=== PATIENT | male | born 1980 | race Caucasian/White ===

== ENCOUNTER 2021-09-20 09:30 | Emergency (ER) | payer OTHER ==
--- NOTE | 2021-09-20 10:42 | Ultrasound Report ---
PROCEDURE: Duplex Ext Veins Right INDICATIONS: Right leg pain; history of DVT; positive recent travel history. TECHNIQUE: Real-time imaging, as well as color and pulse Doppler interrogation, were performed of the lower extr emity deep veins from the inguinal ligament to the popliteal fossa. COMPARISON: None. FINDINGS: The deep veins are normally compressible, and free of intraluminal thrombus. Color and pu lse Doppler demonstrate normal phasic intraluminal flow. There is normal augmentation response to di stal compression maneuver. IMPRESSION: No sonographic evidence of DVT in the right lower extremity. Reviewed by: Sánchez Davies MD on 09/20/2021 10:41 AM PDT Approved by: Sánchez Davies MD on 09/20/2021 10:41 AM PDT Station ID: [id number]
--- NOTE | 2021-09-20 11:36 | ED Physician Documentation ---
History of Present Illness - Stated complaint Stated Complaint: LEG PAIN - Chief complaint Chief Complaint: Ext Problem - Additonal information Additional information: 40-year-old male presents emergency department for evaluation of right leg pain for about the last week. This follows travel via car from [place]. 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 Currently taking Coumadin. Denies missing any doses. No chest pain or shortness of air. He states that 1 day travel was extremely stressful and he drove for a much longer period of time without stopping than he anticipated. He does have some pain from his low back that radiates down the right leg. No saddle anesthesia. No bowel or bladder incontinence. No falls or trauma. He does have a history of low back pain but with his history of thromboembolism he wanted to rule out DVT today. Review of Systems Constitutional: denies: Fever Throat: reports: Reviewed and negative Cardiac: reports: Calf pain. denies: Chest pain / pressure, Palpitations, Pedal edema Respiratory: reports: Reviewed and negative GI: reports: Reviewed and negative : reports: Reviewed and negative Skin: denies: Rash, Lesions Musculoskeletal: reports: Back pain, Extremity pain Neurologic: reports: Reviewed and negative Psychiatric: reports: Reviewed and negative PD PAST MEDICAL HISTORY - Allergies Allergies/Adverse Reactions: Allergies Allergy/AdvReac Type Severity Reaction Status Date / Time fentanyl AdvReac Unknown Verified 09/20/21 09:46 PD ED PE NORMAL - General General: Alert and oriented X 3, No acute distress, Well developed/nourished - HEENT HEENT: Atraumatic - Cardiac Cardiac: RRR, No murmur - Back Back: Other (mild lower lumbar paraspnous tenderness. negative straight leg bilaterally. no CVA tenderness. no leg swelling, calf pain. Full ROM lumbar spine. normal gait) - Derm Derm: Normal color, Warm and dry, No rash - Extremities Extremities: No tenderness to palpate, No edema. No: No calf tenderness / cord - Neuro Neuro: Alert and oriented X 3 Eye Opening: Spontaneous Motor: Obeys Commands Verbal: Oriented GCS Score: 15 Results - Vitals Vitals: Vital Signs - 24 hr 09/20/21 09:41 Temperature 37.2 C Heart Rate 84 Respiratory 18 Rate Blood Pressure 140/112 H O2 Saturation 99 Oxygen O2 Source Room air - Labs Labs: Laboratory Tests 09/20/21 10:01 INR (Fingerstick) 3.8 H - Rads (name of study) right leg us Radiology: Final report received (No deep vein thrombosis) PD MEDICAL DECISION MAKING - ED course Complexity details: re-evaluated patient, considered differential, d/w patient ED course: 40-year-old male presents emergency department for evaluation of right lower extremity discomfort. This followed travel by car from [place] to [facility]. He does have a history of DVT and pulmonary embolus. He is on Coumadin for life. Ultrasound DVT is negative. His exam is reassuring without any leg swelling calf erythema. Given history of low back pain and sitting for prolonged period of time I suspect that he likely has a mild or early sciatica despite negative straight leg exam. Patient is advised gentle stretching and Tylenol for discomfort. He is noted to have a supratherapeutic INR at 3.8. He is advised to hold his dose of Coumadin today and resume as normal tomorrow. He will recheck his INR upon travel to [place]. He has no external signs of uncontrolled bruising or bleeding. Emergent return precautions otherwise discussed Departure - Departure Disposition: Home, Self Care Clinical Impression: Right leg pain, Elevated INR Condition: Stable Record reviewed to determine appropriate education?: Yes Comments: You are seen today in the emergency department because of pain that radiates from your low back down the right leg. In the history of you having DVTs and pulmonary embolus we did complete an ultrasound to rule out a deep vein thrombus. That ultrasound today is negative. Your INR is supratherapeutic at 3.8. I make the recommendation that you hold today's dose and then begin taking as normal. You should follow-up in [place] for your elevated INR. As we discussed at the bedside I suspect that the cause of the pain is low back strain or mild sciatica simply from sitting for too long. On your return trip back I do recommend that you take more frequent breaks frequent walking and gentle stretching. You can take Tylenol for discomfort.
[2021-09-20 11:42] VITALS: BP 150/104
== END 2021-09-20 11:41 | disposition home or self-care (01) ==
LOC: ED 09:30
DX: M79.604 Pain in right leg (principal); R79.1 Abnormal coagulation profile; Z86.718 Personal history of other venous thrombosis and embolism
CPT/HCPCS: 85610; 99282; 99284